=== PATIENT | female | born 1965 | race Two or more races ===

== ENCOUNTER 2020-06-02 17:42 | Inpatient (IN) | payer OTHER ==
[~2020-06-02] VITALS: Ht 91.4 cm; Wt 5.0 kg
[2020-06-02] MEDS ORDERED: LOSARTAN POTASS25 MG PO (19:19)
[2020-06-02] MEDS ORDERED: SIMVASTATIN20 MG PO (19:19)
[2020-06-02] MEDS ORDERED: JANUVIA100 MG PO (19:20)
[2020-06-02] MEDS ORDERED: LENVIMA1 EAC3 PO (19:21)
== END 2020-06-07 10:22 | disposition home or self-care (01) | DRG 419 ==
LOC: MEDI 17:42 → SURH 17:43
PROVIDERS: Surgery; ADMIT Internal Medicine; ATTEND Internal Medicine
PROC: 0DNF4ZZ Release Right Large Intestine, Percutaneous Endoscopic Approach (ICD-10-PCS; 2020-06-05)
PROC: 0DN84ZZ Release Small Intestine, Percutaneous Endoscopic Approach (ICD-10-PCS; 2020-06-05)
PROC: 30233R1 Transfusion of Nonautologous Platelets into Peripheral Vein, Percutaneous Approach (ICD-10-PCS; 2020-06-05)
PROC: 0FT44ZZ Resection of Gallbladder, Percutaneous Endoscopic Approach (ICD-10-PCS; principal; 2020-06-05 07:00)
DX: K80.00 Calculus of gallbladder with acute cholecystitis without obstruction (principal); K80.12 Calculus of gallbladder with acute and chronic cholecystitis without obstruction; K82.8 Other specified diseases of gallbladder; K66.0 Peritoneal adhesions (postprocedural) (postinfection); D69.59 Other secondary thrombocytopenia; C54.1 Malignant neoplasm of endometrium; E78.49 Other hyperlipidemia; E03.8 Other specified hypothyroidism; E11.69 Type 2 diabetes mellitus with other specified complication